=== PATIENT | male | born 1990 | race Caucasian/White ===

== ENCOUNTER 2020-07-18 09:02 | Emergency (ER) | payer OTHER ==
[~2020-07-18] VITALS: Ht 162.6 cm; Wt 84.8 kg
[2020-07-18 09:20] VITALS: BP 119/71; Ht 162.6 cm; Wt 84.8 kg
== END 2020-07-18 12:21 | disposition home or self-care (01) ==
LOC: ED 09:02
DX: M54.6 Pain in thoracic spine (principal); J45.909 Unspecified asthma, uncomplicated